=== PATIENT | female | born 1985 | race Caucasian/White ===

== ENCOUNTER 2017-07-12 23:34 | Emergency (ER) | payer OTHER ==
[~2017-07-12] VITALS: Ht 157.5 cm; Wt 77.8 kg
[2017-07-12 23:38] VITALS: BP 114/73
--- NOTE | 2017-07-12 23:40 | NUR ---
VISION ACUITY BOTH EYES 20/25 , RT EYE EYE 20/30 , LT EYE 20/50
--- NOTE | 2017-07-12 23:41 | NUR ---
TO LOBBY . A/W BED, DONITA, KENIA, BRITTNEY NOTED.
--- NOTE | 2017-07-12 23:51 | NUR ---
PT TAKEN TO BED 4
--- NOTE | 2017-07-12 23:55 | NUR ---
31/F CAME IN W C/O LT EYE REDNESS/PAIN X 5 DAYS. NONTRAUMATIC. LT EYE NOTED WITH EDEMA AND ERYTHEMA. DENIES ANY DISCHARGE, FEVER/CHILLS. IUP 25 WEEKS, . Addendum: 07/13/17 at 0007 by CHERELLE REPORTS BLURRY VISION ON LEFT EYE.
--- NOTE | 2017-07-13 00:50 | NUR ---
Dr. Law evaluating patient at bedside.
[2017-07-13] MEDS ORDERED: ACETAMINOPHEN 325 MG TAB PO ONE (01:00)
[2017-07-13 01:13] VITALS: BP 123/73
--- NOTE | 2017-07-13 01:13 | NUR ---
Patient discharged with v/s stable. Written and verbal after care instructions given and explained. Patient alert, oriented and verbalized understanding of instructions. Ambulatory with steady gait. All questions addressed prior to discharge. ID band removed. Patient advised to follow up with PMD. Rx of TYLENOL, TOBRAMYCIN, ERYTHROMYCIN given. Patient educated on indication of medication including possible reaction and side effects. Opportunity to ask questions provided and answered.
== END 2017-07-13 01:13 | disposition home or self-care (01) ==
LOC: MED 23:34
DX: H00.014 Hordeolum externum left upper eyelid (principal)
CPT/HCPCS: 99283

== ENCOUNTER 2017-07-20 11:01 | Emergency (ER) | payer OTHER ==
[~2017-07-20] VITALS: Ht 157.5 cm; Wt 72.6 kg
[2017-07-20 11:05] VITALS: BP 143/78
[2017-07-20] MEDS ORDERED: LIDOCAINE/PRILOCAINE 2.5% 5 GM TUBE TP ONE (13:00)
[2017-07-20] MEDS ORDERED: cefTRIAXone 1,000 MG in LIDOCAINE MPF 1% - **ER/OR** 2.1 ML IM ONE (13:00)
[2017-07-20] MEDS ORDERED: LIDOCAINE/PRILOCAINE 2.5% 30 GM TUBE TP ONE (13:17)
[2017-07-20 15:41] VITALS: BP 143/82
== END 2017-07-20 15:42 | disposition home or self-care (01) ==
LOC: MED 11:01
DX: H00.026 Hordeolum internum left eye, unspecified eyelid (principal)
CPT/HCPCS: 67700; 96372; 99284; J0696; J2001; 99283